=== PATIENT | male | born 1970 | race Caucasian/White ===

== ENCOUNTER 2017-03-15 17:33 | Emergency (ER) | payer OTHER ==
--- NOTE | 2017-03-15 17:44 | EDPHY ---
H & P Stated Complaint: L thigh numbness HPI/ROS: CHIEF COMPLAINT: Left thigh paresthesia HISTORY OF PRESENT ILLNESS: The patient is a 47-year-old man who was at work walking when he noticed some numbness to the anterior left thigh. It lasted for about 10 minutes and then resolved. It made him very nervous and he began to hyperventilate. He called 911. His symptoms resolved prior to arrival. Had no recent fevers. No focal weakness or deficits.. No cold sensation or discoloration to his leg. He states that he passed a very thorough work physical 1 week ago. REVIEW OF SYSTEMS: Constitutional: denies: chills, fever, recent illness, recent injury EENTM: denies: blurred vision, double vision, nose congestion Respiratory: denies: cough, shortness of breath Cardiac: denies: chest pain, irregular heart rate, lightheadedness, palpitations Gastrointestinal/Abdominal: denies: abdominal pain, diarrhea, nausea, vomiting, blood streaked stools Genitourinary: denies: dysuria, frequency, hematuria, pain Musculoskeletal: See HPI Skin: denies: lesions, rash, jaundice, bruising Neurological: denies: headache, numbness, paresthesia, tingling, dizziness, weakness Hematologic/Lymphatic: denies: blood clots, easy bleeding, easy bruising Immunologic/allergic: denies: HIV/AIDS, transplant EXAM: GENERAL: Well-appearing, well-nourished and in no acute distress. HEAD: Atraumatic, normocephalic. EYES: Pupils equal round and reactive to light, extraocular movements intact, sclera anicteric, conjunctiva are normal. ENT: TMs normal, nares patent, oropharynx clear without exudates. Moist mucous membranes. NECK: Normal range of motion, supple without lymphadenopathy or JVD. LUNGS: Breath sounds clear to auscultation bilaterally and equal. No wheezes rales or rhonchi. HEART: Regular rate and rhythm without murmurs, rubs or gallops. ABDOMEN: Soft, nontender, normoactive bowel sounds. No guarding, no rebound. No masses appreciated. BACK: No CVA tenderness, no spinal tenderness, step-offs or deformities EXTREMITIES: Normal range of motion, no pitting or edema. No clubbing or cyanosis. NEUROLOGICAL: NIH stroke score 0, Cranial nerves II through XII grossly intact. Normal speech, normal gait. 5/5 strength, normal movement in all extremities, normal sensation PSYCH: Normal mood, normal affect. SKIN: Warm, dry, normal turgor, no visible rashes or lesions. Source: Patient Exam Limitations: No limitations - Medical/Surgical History Hx Asthma: No Hx Chronic Respiratory Disease: No Hx Diabetes: No Hx Cardiac Disease: No Hx Renal Disease: No Hx Cirrhosis: No Other PMH: denies. - Family History Significant Family History: No pertinent family hx - Social History Smoking Status: Never smoked Alcohol Use: Sober Drug Use: None Constitutional: Initial Vital Signs Temperature (C) 36.8 C 03/15/17 17:35 Heart Rate 88 03/15/17 17:35 Respiratory Rate 18 03/15/17 17:35 Blood Pressure 173/106 H 03/15/17 17:35 O2 Sat (%) 97 03/15/17 17:35 O2 Delivery Mode Room Air Allergies/Adverse Reactions: No Known Allergies Allergy (Unverified 03/15/17 17:37) Medical Decision Making - Diagnostics EKG Interpretation: An EKG obtained and was read and documented in trace view. Please see trace view for full reading and report. Sinus rhythm, no acute ischemic changes ED Course/Re-evaluation: 5:40 p.m. the patient's symptoms are very characteristic for meralgia paresthetica. We discussed this. His symptoms have already resolved. He has strong pulses in his lower extremities. No swelling or edema. No rashes. I will perform an EKG because of the shortness of breath although it is resolved. He denies chest pain. The patient remains asymptomatic. We discussed further treatment and indications for follow-up. We discussed indications for returning. He does not wish to stay for further workup or testing. Differential Diagnosis: Partial list of the Differential diagnosis considered include but were not limited to; meralgia paresthetica, anxiety and although unlikely based on the history and physical exam, I also considered acute coronary disease, arrhythmia , CVA. I discussed these differential diagnoses and the plan with the patient as well as the usual and expected course. The patient understands that the diagnosis is provisional and that in medicine we are not always correct and that further workup is often warranted. Usual and customary warnings were given. All of the patient's questions were answered. The patient was instructed to return to the emergency department should the symptoms at all worsen or return, otherwise to followup with the physician as we discussed. Departure - Departure Disposition: Home, Routine, Self-Care Clinical Impression: Meralgia paresthetica of left side Condition: Fair Instructions: Meralgia Paresthetica (ED) Referrals: Patient,NotPresent [Unknown] - As per Instructions Jade Jesus MD [Medical Doctor] - As per Instructions
--- NOTE | 2017-03-15 17:50 | CPEKG ---
Heart Rate: 83 RR Interval: 723 P-R Interval: 164 QRSD Interval: 80 QT Interval: 356 QTC Interval: 419 P [place]: 42 QRS [place]: 52 T Wave [place]: 11 EKG Severity - NORMAL ECG - EKG Impression: SINUS RHYTHM Electronically Signed By: Edwar Barraza 15-Mar-2017 17:53:25
[2017-03-15 18:10] VITALS: BP 169/92; PULSE 81; RESP 16; TEMP 96.8; O2SAT 98
== END 2017-03-15 18:10 | disposition home or self-care (01) ==
LOC: EDUNIT#
DX: G57.12 Meralgia paresthetica, left lower limb (principal)